=== PATIENT | female | born 1935 | race Caucasian/White ===

== ENCOUNTER 2019-05-23 11:39 | Emergency (ER) | payer MEDICARE, BC ==
[2019-05-23] MEDS ORDERED: Sodium Chloride 0.9% 10 ML Syringe FLUSH PRN (11:48)
[2019-05-23 12:07] VITALS: BP 137/72; PULSE 72
[2019-05-23] MEDS ORDERED: cefTRIAXone 1 GM in Sodium Chloride 0.9% 100 ML IV ONE (12:38)
[2019-05-23] MEDS ORDERED: Acetaminophen 325 MG Tab PO ONE (12:47)
--- NOTE | 2019-05-23 13:22 | EDM.PDOC ---
ED HPI GENERAL MEDICAL PROBLEM - General Chief Complaint: Respiratory Problem Stated Complaint: Cough, Fever Time Seen by Provider: 05/23/19 11:45 Source of Information: Reports: Patient, Senior Living Records - History of Present Illness INITIAL COMMENTS - FREE TEXT/NARRATIVE: Pt with cough and fever Also with congestion No N/V/D No chest pain No dysuria Onset: Gradual Location: Reports: Generalized - Related Data Allergies Allergy/AdvReac Type Severity Reaction Status Date / Time chlorpheniramine maleate Allergy UNKNOWN Verified 08/10/14 13:37 [From Aller-Chlor Decongestant] ciprofloxacin [From Cipro] Allergy unknown Verified 08/10/14 13:37 ciprofloxacin HCl Allergy unknown Verified 08/10/14 13:37 [From Cipro] pseudoephedrine HCl Allergy UNKNOWN Verified 08/10/14 13:37 [From Aller-Chlor Decongestant] Home Meds: Home Meds Aspirin [Haley Chewable Aspirin] 81 mg PO Q72H 07/11/14 [History] Fluticasone Propionate [Flonase] 1 puff NS BID 07/11/14 [History] Lisinopril 10 mg PO DAILY 07/11/14 [History] Metoprolol Succinate [Toprol XL] 25 mg PO DAILY 07/11/14 [History] Omeprazole [Prilosec] 20 mg PO DAILY 07/11/14 [History] Sertraline [Zoloft] 25 mg PO DAILY 07/11/14 [History] Ubidecarenone [Coq10] 200 mg PO DAILY 07/11/14 [History] Triamcinolone Acetonide [Triamcinolone Acetonide 0.1% Oint] 1 applic TOP DAILY PRN 08/10/14 [History] cycloSPORINE [Restasis] 1 drop EYEBOTH BID 08/10/14 [History] Social & Family History - Living Situation & Occupation Living situation: Reports: , Alone Occupation: Retired ED ROS GENERAL - Review of Systems Review Of Systems: See Below Constitutional: Reports: Fever Respiratory: Reports: Cough, Other (congestion) ED EXAM, GENERAL - Physical Exam Exam: See Below Exam Limited By: No Limitations General Appearance: No Apparent Distress Throat/Mouth: Normal Inspection, Normal Oropharynx Neck: Supple Respiratory/Chest: Decreased Breath Sounds GI/Abdominal: Soft, Non-Tender Extremities: No Pedal Edema Neurological: Alert, Oriented, No Motor/Sensory Deficits Course - Vital Signs Last Recorded V/S: Last Vital Signs Temp 101.1 F H 05/23/19 11:40 Pulse 72 05/23/19 11:40 Resp 18 05/23/19 11:40 BP 137/72 05/23/19 11:40 Pulse Ox 95 05/23/19 11:40 - Orders/Labs/Meds Orders: Active Orders 24 hr Category Date Time Status Peripheral IV Care [RC] . DIRECTED Care 05/23/19 11:48 Active CULTURE BLOOD [BC] Stat Lab 05/23/19 11:55 Received CULTURE BLOOD [BC] Stat Lab 05/23/19 12:00 Received Sodium Chloride 0.9% [Saline Flush] Med 05/23/19 11:48 Active 10 ml FLUSH ASDIRECTED PRN Blood Culture x2 Reflex Set [OM.PC] Stat Oth 05/23/19 11:48 Ordered Peripheral IV Insertion Adult [OM.PC] Routine Oth 05/23/19 11:48 Ordered Medication Orders Sodium Chloride (Saline Flush) 10 ml FLUSH ASDIRECTED PRN PRN Reason: Keep Vein Open Last Admin: 05/23/19 12:46 Dose: 10 ml Labs: Laboratory Tests 05/23/19 Range/Units 11:55 Lactic Acid 0.9 (0.4-2.0) mmol/L Meds: Medications Generic Name Dose Route Start Last Admin Trade Name Freq PRN Reason Stop Dose Admin Sodium Chloride 10 ml 05/23/19 11:48 05/23/19 12:46 Saline Flush FLUSH 10 ml ASDIRECTED PRN Administration Keep Vein Open Discontinued Medications Generic Name Dose Route Start Last Admin Trade Name Freq PRN Reason Stop Dose Admin Acetaminophen 650 mg 05/23/19 12:47 Tylenol PO 05/23/19 12:48 NOW ONE Ceftriaxone Sodium 1 gm/ 100 mls @ 200 mls/hr 05/23/19 12:38 05/23/19 12:45 Sodium Chloride IV 05/23/19 13:07 200 mls/hr ONETIME ONE Administration - Re-Assessments/Exams Free Text/Narrative Re-Assessment/Exam: 05/23/19 13:20 See lab CXR per radiologist with no acute findings Pt given Rocephin 1 gm IV in ER See NH orders Departure - Departure Time of Disposition: 13:30 Disposition: DC/Tfer to SNF 03 Clinical Impression: COPD exacerbation - Discharge Information *PRESCRIPTION DRUG MONITORING PROGRAM REVIEWED*: Not Applicable *COPY OF PRESCRIPTION DRUG MONITORING REPORT IN PATIENT JANETH: Not Applicable Instructions: Chronic Obstructive Pulmonary Disease, [id number], Chronic Obstructive Pulmonary Disease Exacerbation, [id number] Referrals: Ashia Singh NP [Primary Care Provider] - Additional Instructions: Pt to start Zithromax today Rx for Z-luis miguel Pt to have Rocephin 1 gm IM a day for 3 days Follow up with usual provider Sepsis Event Note - Evaluation Sepsis Screening Result: No Definite Risk - Focused Exam Vital Signs: Vital Signs Temp Pulse Resp BP Pulse Ox 05/23/19 11:40 101.1 F H 72 18 137/72 95 Date Exam was Performed: 05/23/19 Time Exam was Performed: 13:17 - My Orders Last 24 Hours: My Active Orders 05/23/19 11:48 Peripheral IV Care [RC] . DIRECTED Sodium Chloride 0.9% [Saline Flush] 10 ml FLUSH ASDIRECTED PRN Blood Culture x2 Reflex Set [OM.PC] Stat Peripheral IV Insertion Adult [OM.PC] Routine 05/23/19 11:55 CULTURE BLOOD [BC] Stat 05/23/19 12:00 CULTURE BLOOD [BC] Stat - Assessment/Plan Last 24 Hours: My Active Orders 05/23/19 11:48 Peripheral IV Care [RC] . DIRECTED Sodium Chloride 0.9% [Saline Flush] 10 ml FLUSH ASDIRECTED PRN Blood Culture x2 Reflex Set [OM.PC] Stat Peripheral IV Insertion Adult [OM.PC] Routine 05/23/19 11:55 CULTURE BLOOD [BC] Stat 05/23/19 12:00 CULTURE BLOOD [BC] Stat
== END 2019-05-23 13:50 ==
LOC: LL.ED 11:39
DX: J44.1 Chronic obstructive pulmonary disease with (acute) exacerbation (principal); Z79.82 Long term (current) use of aspirin; Z79.899 Other long term (current) drug therapy; Z88.8 Allergy status to other drugs, medicaments and biological substances; Z88.1 Allergy status to other antibiotic agents
CPT/HCPCS: 36415; 83605; 87040; 87804; 96365; 99284-25; A9270-GY; J0696; J7050

== ENCOUNTER 2021-04-27 14:10 | Emergency (ER) | payer MEDICARE, BC ==
[2021-04-27 15:17] LABS: ANION GAP 9.1 meq/L (7-15); CHLORIDE,CL 105 mmol/L (98-107); SODIUM,NA 139 mmol/L (136-145)
[2021-04-27] MEDS ORDERED: Iopamidol 755 Mg/ML 100 ML Bottle IVPUSH STA (15:50)
[2021-04-27] MEDS ORDERED: cefTRIAXone 1 GM in Sodium Chloride 0.9% 100 ML IV ONE (15:58)
[2021-04-27] MEDS ORDERED: Azithromycin 500 MG in Sodium Chloride 0.9% 250 ML IV ONE (15:59)
[2021-04-27] MEDS ORDERED: cefTRIAXone 1 GM Vial ONE (16:31)
[2021-04-27 18:06] VITALS: BP 130/57; PULSE 74
== END 2021-04-27 19:25 ==
LOC: LL.ED 14:10
DX: U07.1 COVID-19 (principal); J12.82 Pneumonia due to coronavirus disease 2019; I10 Essential (primary) hypertension; K21.9 Gastro-esophageal reflux disease without esophagitis; Z87.891 Personal history of nicotine dependence; Z88.8 Allergy status to other drugs, medicaments and biological substances; Z88.1 Allergy status to other antibiotic agents; Z79.82 Long term (current) use of aspirin; Z79.899 Other long term (current) drug therapy
CPT/HCPCS: 36415; 71045; 71275; 80053; 81001; 83605; 83735; 85025; 85379; 96365; 99284; 99285-25; J0456; J0696; J7050; Q9967